=== PATIENT | female | born 1930 | race Caucasian/White ===

== ENCOUNTER → 2016-09-08 | Outpatient (CLI) | payer MEDICARE, BC ==
[~2016-09-08] MED LIST: ACET325T51 PO; ALBU1.252 AEROSOL; ASPI-725 PO; BUME1TAB17 PO; CALC-52 PO; CARV6.252 PO; CHOL500019 PO; CLOP75TA PO; DOCU-168 PO; EZET10TA PO; GABA-215 PO; GUAI100S13 PO; GUAI600T PO; HYDR-3989 PO; INSU100C6 SQ; INSU100I21 SQ; INSU100V13 SQ; IPRA3AMP AEROSOL; LEVO500T63 PO; LEVO75TA4 PO; MEMA28CA PO; PANT20TA PO; POTA20TA87 PO; PROP10DR2 OP; SERT50TA PO; SULF5DRO LEFT EYE; TIMO2.5D4 BOTH EYES
== END ==
LOC: LABNH.PM 01:07
PROVIDERS: ATTEND Family Medicine
DX: Z79.899 Other long term (current) drug therapy (principal)
CPT/HCPCS: 36415; 84460; P9604

== ENCOUNTER → 2016-10-20 | Outpatient (CLI) | payer MEDICARE, BC ==
[2016-10-20 07:06] LABS: BASOPHILS % (AUTO) 0.4 % (0-2); EOSINOPHILS # (AUTO) 0.5 T/MM3 (0-0.5); EOSINOPHILS % (AUTO) 5.8 % (0-4); HCT - HEMATOCRIT 41.9 % (36-46); HGB - HEMOGLOBIN 12.6 GM/DL (12-16); IMMATURE GRANULOCYTE # (AUTO) 0.01 T/MM3 (0.00-0.03); IMMATURE GRANULOCYTE % (AUTO) 0.1 % (0.0-0.5); LYMPHOCYTES # (AUTO) 1.3 T/MM3 (1-4.8); LYMPHOCYTES % (AUTO) 16.8 % (23-45); MEAN CORPUSCULAR HGB 29.5 UUG (26-34); MEAN CORPUSCULAR HGB CONC(MCHC 30.1 GM/DL (31-37); MEAN CORPUSCULAR VOLUME 98.1 UM3 (80-100); MEAN PLATELET VOLUME 11.3 UM3 (9.4-12.4); MONOCYTES # (AUTO) 0.6 T/MM3 (0-0.8); MONOCYTES % (AUTO) 7.6 % (0-9.0); NEUTROPHILS #(AUTO)-ABSOLUTE 5.5 T/MM3 (1.8-7.7); NEUTROPHILS % (AUTO) 69.3 % (33-66); RED BLOOD COUNT 4.27 M/MM3 (4.00-5.20); WBC - WHITE BLOOD COUNT 7.9 T/MM3 (4.5-11.0)
[2016-10-20 07:13] LABS: HEMOGLOBIN A1C 7.4 % (6.1-7.9)
[2016-10-20 07:21] LABS: ANION GAP 14 MEQ/L (5-15); BUN/CREATININE RATIO 19 RATIO (6-26); CALCIUM 8.4 MG/DL (8.4-10.2); CHLORIDE 103 MEQ/L (98-107); CO2 - CARBON DIOXIDE 32 MEQ/L (22-30); CREATININE 0.9 MG/DL (0.7-1.2); GLOMERULAR FILTRATION RATE 60; GLUCOSE 115 MG/DL (65-110); POTASSIUM 4.3 MEQ/L (3.6-5); SODIUM 149 MEQ/L (134-144)
== END ==
LOC: LABNH.PM 00:31
PROVIDERS: ATTEND Family Medicine
DX: E11.9 Type 2 diabetes mellitus without complications (principal); I50.9 Heart failure, unspecified; R35.8 Other polyuria
CPT/HCPCS: 36415; 80048; 83036; 85025; P9604

== ENCOUNTER → 2016-11-03 | Outpatient (CLI) | payer MEDICARE, BC | LOC: LABNH.PM 00:53 | PROVIDERS: ATTEND Family Medicine | DX: Z79.899 Other long term (current) drug therapy (principal) | CPT/HCPCS: 36415; 83735; P9604 ==

== ENCOUNTER → 2016-11-15 | Outpatient (CLI) | payer MEDICARE, BC ==
[2016-11-15 14:41] LABS: BASOPHILS # (AUTO) 0.1 T/MM3 (0-0.2); BASOPHILS % (AUTO) 0.5 % (0-2); EOSINOPHILS # (AUTO) 0.4 T/MM3 (0-0.5); HCT - HEMATOCRIT 42.5 % (36-46); HGB - HEMOGLOBIN 12.8 GM/DL (12-16); IMMATURE GRANULOCYTE # (AUTO) 0.03 T/MM3 (0.00-0.03); IMMATURE GRANULOCYTE % (AUTO) 0.3 % (0.0-0.5); LYMPHOCYTES # (AUTO) 1.1 T/MM3 (1-4.8); LYMPHOCYTES % (AUTO) 10.3 % (23-45); MEAN CORPUSCULAR HGB 29.6 UUG (26-34); MEAN CORPUSCULAR HGB CONC(MCHC 30.1 GM/DL (31-37); MEAN CORPUSCULAR VOLUME 98.4 UM3 (80-100); MEAN PLATELET VOLUME 10.8 UM3 (9.4-12.4); MONOCYTES # (AUTO) 0.8 T/MM3 (0-0.8); MONOCYTES % (AUTO) 6.8 % (0-9.0); NEUTROPHILS #(AUTO)-ABSOLUTE 8.6 T/MM3 (1.8-7.7); NEUTROPHILS % (AUTO) 78.1 % (33-66); RED BLOOD COUNT 4.32 M/MM3 (4.00-5.20)
== END ==
LOC: LABN.PM 14:31
PROVIDERS: ATTEND Family Medicine
DX: I50.9 Heart failure, unspecified (principal)
CPT/HCPCS: 83880; 85025